=== PATIENT | female | born 1985 | race Caucasian/White ===

== ENCOUNTER 2018-02-12 00:14 | Emergency (ER) | payer SELFPAY ==
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
[2018-02-12 00:25] VITALS: BP 129/82
== END 2018-02-12 00:30 ==
DX: Y04.8XXA Assault by other bodily force, initial encounter; Y99.9 Unspecified external cause status